=== PATIENT | female | born 1970 | race American Indian/Alaskan Native ===

== ENCOUNTER 2017-03-16 17:14 | Emergency (ER) | payer MEDICAID ==
[2017-03-16 17:57] LABS: Bilirubin,Urine NEG (Negative); Blood,Urine SM (Negative); Ketones,Urine NEG (Negative); Leukocyte Esterase,Urine TR (Negative); Nitrite,Urine NEG (Negative); Protein,Urine <15 mg/dL mg/dL (Negative)
[2017-03-16 18:00] LABS: Hematocrit 27.9 % (30.3-42.9); Hemoglobin 9.4 gm/dl (10.1-14.3); Mean Corpuscular HGB Conc 34 % (30-34); Mean Corpuscular Hemoglobin 31 pg (28-32); Mean Corpuscular Volume 92 fl (79-97); Red Blood Count 3.05 M/mm3 (3.65-5.03); Red Cell Distribution Width 18.8 % (13.2-15.2); White Blood Count 10.3 K/mm3 (4.5-11.0)
[2017-03-16 18:06] LABS: Eosinophils % (Auto) 0.6 % (0.0-4.3)
[2017-03-16 18:09] LABS: Basophils % (Auto) 0.7 % (0.0-1.8)
[2017-03-16 18:25] LABS: Alanine Aminotransferase 18 units/L (7-56); Albumin 4.4 g/dL (3.9-5); Albumin/Globulin Ratio 1.2 %; Alkaline Phosphatase 161 units/L (35-129); Blood Urea Nitrogen 12 mg/dL (7-17); Calcium 11.1 mg/dL (8.4-10.2); Carbon Dioxide 27 mmol/L (22-30); Glucose 179 mg/dL (65-100); Lipase 19 units/L (13-60)
[2017-03-16 18:26] LABS: Anion Gap 19 mmol/L; Chloride 97.9 mmol/L (98-107); Potassium 3.7 mmol/L (3.6-5.0); Sodium 140 mmol/L (137-145)
[2017-03-16 18:50] LABS: Basophils % (Manual) 0 % (0.0-1.8); Blastocytes % (Manual) 0 %; Eosinophils % (Manual) 0 % (0.0-4.3)
[2017-03-16 18:52] LABS: Anisocytosis 1+
[2017-03-16 18:53] LABS: Platelet Estimate Appears Decreased; Polychromasia Few
[2017-03-16 18:54] LABS: Diff Status Complete; Platelet Count 25 K/mm3 (140-440)
[2017-03-16] MEDS ORDERED: NORCO 10/325 PO ONE (22:16)
--- NOTE | 2017-03-16 23:25 | Ultrasound Report ---
FINAL REPORT PROCEDURE: US ABDOMEN LIMITED TECHNIQUE: Real-time sonography in multiple planes of the gallbladder fossa and CBD with imaging of the adjacent liver, pancreas, and right kidney was performed with image documentation. CPT 02790 HISTORY: right upper quadrant pain COMPARISON: No prior studies are available for comparison. FINDINGS: Liver: Normal size and echotexture with no evidence of cystic or solid mass lesion. Gallbladder: Fluid filled. No gallstones, wall thickening, pericholecystic fluid, or sonographic Osuna's sign . Intrahepatic bile ducts: Normal . Extrahepatic bile ducts: Normal . Pancreas: Normal as visualized with suboptimal depiction of the pancreatic tail. Right kidney: Normal echotexture. No focal renal mass, calculus, or hydronephrosis. Other: No free fluid. IMPRESSION: Normal Examination
--- NOTE | 2017-03-16 23:52 | Emergency Department Report ---
HPI - General Chief Complaint: Abdominal Pain Time Seen by Provider: 03/16/17 22:15 ED Past Medical Hx - Past Medical History Hx Hypertension: Yes Hx Psychiatric Treatment: Yes Hx Asthma: Yes Additional medical history: bipolar. glaucoma - Surgical History Additional Surgical History: hysterectomy. umbilical hernia repair. hernia repair. left eye surgery - Social History Smoking Status: Current Every Day Smoker Substance Use Type: None - Medications Home Medications: Home Medications Medication Instructions Recorded Confirmed Last Taken Type ALBUTEROL Inhaler [ProAir] 1 inhalation PO DAILY 01/13/14 11/18/14 11/18/14 History LORazepam [Ativan] 1 mg PO TID PRN 01/13/14 11/18/14 11/17/14 History Quetiapine Fumarate [Seroquel] 50 mg PO DAILY 01/13/14 11/18/14 11/17/14 History Quetiapine Fumarate [Seroquel] 100 mg PO QHS 01/13/14 11/18/14 11/17/14 History Lisinopril [Zestril] 50 mg PO QDAY 11/18/14 11/18/14 11/18/14 History Cephalexin [Keflex] 500 mg PO Q6H #30 capsule 11/19/14 Unknown Rx HYDROcodone/APAP 10-325 [[place] 1 each PO Q8HR PRN #20 tablet 11/19/14 Unknown Rx 10/325] Mupirocin [Bactroban 2% OINT] 1 applic TP TID #1 tube 11/19/14 Unknown Rx Dicyclomine [Bentyl] 20 mg PO QID #30 cap 03/17/17 Unknown Rx ED Review of Systems ROS: Stated complaint: ABDOMEN PAIN Other details as noted in HPI Physical Exam - Physical Exam Vital Signs: Vital Signs 03/16/17 03/16/17 17:24 22:20 Temperature 98.0 F Pulse Rate 100 H Respiratory 22 20 Rate Blood Pressure 151/99 O2 Sat by Pulse 100 Oximetry Physical Exam: Physical Exam: - General Limitations: No Limitations General appearance: alert, in no apparent distress. - Head Head exam: Present: atraumatic, normocephalic - Eye Eye exam: Present: normal appearance - ENT ENT exam: Present: mucous membranes moist - Neck Neck exam: Present: normal inspection - Respiratory Respiratory exam: Present: normal lung sounds bilaterally. Absent: respiratory distress - Cardiovascular Cardiovascular Exam: Present: normal rhythm, normal rate. Absent: systolic murmur, diastolic murmur, rubs, gallop - GI/Abdominal GI/Abdominal exam: Present: soft, normal bowel sounds - Extremities Exam Extremities exam: Present: normal inspection - Back Exam Back exam: Present: normal inspection - Neurological Exam Neurological exam: Present: alert, oriented X3 - Psychiatric Psychiatric exam: normal affect and mood - Skin Skin exam: Present: warm, dry, intact, normal color. Absent: rash ED Course Vital Signs 03/16/17 03/16/17 17:24 22:20 Temperature 98.0 F Pulse Rate 100 H Respiratory 22 20 Rate Blood Pressure 151/99 O2 Sat by Pulse 100 Oximetry ED Medical Decision Making - Lab Data Result diagrams: 03/16/17 17:46 03/16/17 17:46 Critical care attestation.: If time is entered above; I have spent that time in minutes in the direct care of this critically ill patient, excluding procedure time. ED Disposition Clinical Impression: Abdominal pain Disposition: DC-01 TO HOME OR SELFCARE Condition: Stable Instructions: Abdominal Pain (ED) Prescriptions: Dicyclomine [Bentyl] 20 mg PO QID #30 cap Referrals: KATELIN CONTEH DO [Primary Care Provider] - 3-5 Days
[2017-03-17 00:34] VITALS: BP 134/77
== END 2017-03-17 01:22 | disposition home or self-care (01) ==
LOC: ED 17:14
DX: R10.9 Unspecified abdominal pain (principal); J45.909 Unspecified asthma, uncomplicated; F17.200 Nicotine dependence, unspecified, uncomplicated; F31.9 Bipolar disorder, unspecified
CPT/HCPCS: 36415; 76705; 80053; 81001; 83690; 85007; 85025

== ENCOUNTER 2017-08-02 16:12 | Emergency (ER) | payer MEDICAID ==
[2017-08-02 19:15] VITALS: BP 166/76
--- NOTE | 2017-08-02 22:38 | Emergency Department Report ---
Abscess Boil HPI - HPI Chief Complaint: Skin/Abscess/Foreign Body Stated Complaint: BOIL LEFT ARMPIT Time Seen by Provider: 08/02/17 22:33 Duration: 1 Week Location: Upper Extremity (armpit) Severity: Mild History: Yes Previous History, No Fever, No Pain, No Purulent Drainage, No Numbness, No Foreign Body, No Insect Bite HPI: Patient is a 47-year-old female presents to ED complaining of boil under left arm pain. Patient states she's been it for about a week. Patient states prior to that for the past 2 months states, it has calmed and resolved on its own. She states this time says he gets to be drained. Home Medications: Home Medications Medication Instructions Recorded Confirmed Last Taken ALBUTEROL Inhaler [ProAir] 1 inhalation PO DAILY 01/13/14 11/18/14 11/18/14 LORazepam [Ativan] 1 mg PO TID PRN 01/13/14 11/18/14 11/17/14 Quetiapine Fumarate [Seroquel] 50 mg PO DAILY 01/13/14 11/18/14 11/17/14 Quetiapine Fumarate [Seroquel] 100 mg PO QHS 01/13/14 11/18/14 11/17/14 Lisinopril [Zestril] 50 mg PO QDAY 11/18/14 11/18/14 11/18/14 Previous Rx's Medication Instructions Recorded Last Taken Type Cephalexin [Keflex] 500 mg PO Q6H #30 capsule 11/19/14 Unknown Rx HYDROcodone/APAP 10-325 [[place] 1 each PO Q8HR PRN #20 tablet 11/19/14 Unknown Rx 10/325] Mupirocin [Bactroban 2% OINT] 1 applic TP TID #1 tube 11/19/14 Unknown Rx Dicyclomine [Bentyl] 20 mg PO QID #30 cap 03/17/17 Unknown Rx Clindamycin [Clindamycin CAP] 300 mg PO Q8H #21 cap 08/02/17 Unknown Rx HYDROcodone/APAP 5-325 [[place] 1 each PO Q6H #8 tablet 08/02/17 Unknown Rx 5-325 mg TAB] Allergies/Adverse Reactions: Allergies Allergy/AdvReac Type Severity Reaction Status Date / Time lisinopril Allergy Itching Verified 08/02/17 19:19 sulfamethoxazole Allergy Hives Verified 08/02/17 19:18 [From Bactrim] tramadol Allergy Rash Verified 08/02/17 19:19 trimethoprim [From Bactrim] Allergy Hives Verified 08/02/17 19:18 ED Review of Systems ROS: Stated complaint: BOIL LEFT ARMPIT Other details as noted in HPI Constitutional: denies: chills, fever Eyes: denies: eye pain, eye discharge, vision change ENT: denies: ear pain, throat pain Respiratory: denies: cough, shortness of breath, wheezing Cardiovascular: denies: chest pain, palpitations Endocrine: no symptoms reported Gastrointestinal: denies: abdominal pain, nausea, diarrhea Genitourinary: denies: urgency, dysuria, discharge Musculoskeletal: denies: back pain, joint swelling, arthralgia Skin: denies: rash, lesions Neurological: denies: headache, weakness, paresthesias Psychiatric: denies: anxiety, depression Hematological/Lymphatic: denies: easy bleeding, easy bruising ED Past Medical Hx - Past Medical History Hx Hypertension: Yes Hx Diabetes: Yes Hx of Cancer: Yes (Mutiple Myeloma) Hx Psychiatric Treatment: Yes Hx Asthma: Yes Additional medical history: bipolar. glaucoma - Surgical History Additional Surgical History: hysterectomy. umbilical hernia repair. hernia repair. left eye surgery - Social History Smoking Status: Never Smoker Substance Use Type: None - Medications Home Medications: Home Medications Medication Instructions Recorded Confirmed Last Taken Type ALBUTEROL Inhaler [ProAir] 1 inhalation PO DAILY 01/13/14 11/18/14 11/18/14 History LORazepam [Ativan] 1 mg PO TID PRN 01/13/14 11/18/14 11/17/14 History Quetiapine Fumarate [Seroquel] 50 mg PO DAILY 01/13/14 11/18/14 11/17/14 History Quetiapine Fumarate [Seroquel] 100 mg PO QHS 01/13/14 11/18/14 11/17/14 History Lisinopril [Zestril] 50 mg PO QDAY 11/18/14 11/18/14 11/18/14 History Cephalexin [Keflex] 500 mg PO Q6H #30 capsule 11/19/14 Unknown Rx HYDROcodone/APAP 10-325 [[place] 1 each PO Q8HR PRN #20 tablet 11/19/14 Unknown Rx 10/325] Mupirocin [Bactroban 2% OINT] 1 applic TP TID #1 tube 11/19/14 Unknown Rx Dicyclomine [Bentyl] 20 mg PO QID #30 cap 03/17/17 Unknown Rx Clindamycin [Clindamycin CAP] 300 mg PO Q8H #21 cap 08/02/17 Unknown Rx HYDROcodone/APAP 5-325 [[place] 1 each PO Q6H #8 tablet 08/02/17 Unknown Rx 5-325 mg TAB] ED Abscess Boil Physical Exam - Exam General: Vital signs noted. No distress. Alert and acting appropriately. Size: 3 cm Exam: Yes Tenderness, Yes Fluctuance, Yes Normal Neurologic Exam, Yes Normal Circulation, No Surrounding Cellulites/Erythema, No Lymphangitis, No Crepitation , No Heart Murmur I & D Note - I & D Note I & D Note: Patient positioned appropriately, 8cc lidocaine without epinephrine was used as a local anesthetic. #11 blade scalpal used for single incision. Additional local anesthetic injected into surrounding viable tissue prior to blunt dissection of loculated adhesions. Copius drainage of pus. Wound packed with iodoform gauze. Procedure tolerated without complications. Wound dressed with sterile 4x4 guaze and paper tape. Pt tolerated procedure well. ED Course Vital Signs 08/02/17 19:06 Temperature 98.2 F Pulse Rate 107 H Respiratory 18 Rate Blood Pressure 166/76 O2 Sat by Pulse 99 Oximetry Critical care attestation.: If time is entered above; I have spent that time in minutes in the direct care of this critically ill patient, excluding procedure time. ED Medical Decision Making - Medical Decision Making 47-year-old female presents with left axillary area simple abscess ED course: Patient given 1 [place] tab ED Incision and drainage performed, see ID note. Patient tolerated procedure well Discussed the patient to return in 2 days for packing removal and wound check. Discussed the patient to follow up with her care physician. ED Disposition Clinical Impression: Axillary abscess Disposition: DC-01 TO HOME OR SELFCARE Is pt being admited?: No Does the pt Need Aspirin: No Condition: Stable Instructions: Abscess (ED), Abscess Incision and Drainage (ED), Acute Wound Care (ED) Additional Instructions: Make sure to follow up with the primary care physician as discussed. Take all your medications as you've been prescribed. If you have any worsening symptoms or develop new symptoms please return to ED immediately. Prescriptions: Clindamycin [Clindamycin CAP] 300 mg PO Q8H #21 cap HYDROcodone/APAP 5-325 [[place] 5-325 mg TAB] 1 each PO Q6H #8 tablet Referrals: PRIMARY CARE, [Primary Care Provider] - 3-5 Days [facility] [Outside] - 3-5 Days [facility] [Outside] - 3-5 Days Forms: Accompanied Note, Work/School Release Form(ED) Time of Disposition: 23:07
[2017-08-02] MEDS ORDERED: NORCO 5/325 PO ONE (23:02)
== END 2017-08-02 23:39 | disposition home or self-care (01) ==
LOC: ED 16:12
DX: L02.412 Cutaneous abscess of left axilla (principal); I10 Essential (primary) hypertension; E11.9 Type 2 diabetes mellitus without complications; C90.00 Multiple myeloma not having achieved remission; J45.909 Unspecified asthma, uncomplicated; F31.9 Bipolar disorder, unspecified; Z88.2 Allergy status to sulfonamides; Z88.8 Allergy status to other drugs, medicaments and biological substances
CPT/HCPCS: 82962